=== PATIENT | male | born 1980 | race Caucasian/White ===

== ENCOUNTER 2019-08-02 07:25 | Emergency (ER) | payer OTHER ==
[~2019-08-02] VITALS: Ht 162.6 cm; Wt 83.0 kg
[~2019-08-02 07:25] MED LIST: HYDR-3240 PO
--- NOTE | 2019-08-02 07:50 | NUR ---
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 PT DENIES CARDIAC HISTORY. PT DENIES COUGH. PT STATES, "I HAVE BEEN DEALING WITH A SORE THROAT FOR TWO MONTHS, I HAVE SEEN A DOCTOR WHO BELIEVES IT IS ALLERGIES BECAUSE IT COMES AND GOES, I SAW HIM ON July FOR GENERAL CHECK UP." PAIN IS LOCATED BILATERALLY ALONG SIDE OF RIBS, RADIATES TO MIDDLE OF BACK. SOB IS INTERMITTENT. ALL MONITORING IN PLACE, NSR NOTED. VSS, NAD. PT SPEAKING IN FULL SENTECES AND SPO2% IS 98%. CALL LIGHT IN REACH.
--- NOTE | 2019-08-02 07:51 | NUR ---
EKG DONE IN TRIAGE
[2019-08-02] MEDS ORDERED: KETOROLAC 30 MG/1 ML ONE (07:53)
--- NOTE | 2019-08-02 07:59 | NUR ---
PATIENT MEDICATED PER EMAR, TOLERATED WELL
[2019-08-02] MEDS ORDERED: KETOROLAC 30 MG/1 ML IM ONE (08:00)
[2019-08-02 08:06] LABS: BASOPHILS # (AUTO) 0.03 x10^3/uL (0-0.1); BASOPHILS % (AUTO) 1 % (0-1); EOSINOPHILS # (AUTO) 0.03 x10^3/uL (0-0.4); EOSINOPHILS % (AUTO) 1 % (1-7); LYMPHOCYTES # (AUTO) 1.83 x10^3/uL (1-3.4); LYMPHOCYTES % (AUTO) 38 % (22-44); MD NO; MEAN CORPUSCULAR HEMOGLOBIN 30.1 pg (27.5-34.5); MEAN CORPUSCULAR HGB CONC 34.4 g/dL (33.2-36.2); MEAN CORPUSCULAR VOLUME 87.4 fL (81-97); MEAN PLATELET VOLUME 8.6 fL (7.4-10.4); MONOCYTES # (AUTO) 0.39 x10^3/uL (0.2-0.8); MONOCYTES % (AUTO) 8 % (2-9); NEUTROPHILS # (AUTO) 2.48 x10^3/uL (1.8-6.8); NEUTROPHILS % (AUTO) 52 % (42-75); PLATELET COUNT 232 x10^3/uL (130-400); RED BLOOD COUNT 5.45 x10^6/uL (4.38-5.82); RED CELL DISTRIBUTION WIDTH 13.6 % (9.4-14.8)
--- NOTE | 2019-08-02 08:12 | NUR ---
PATIENT BACK FROM XRAY
[2019-08-02 08:17] LABS: ALBUMIN 4.1 g/dL (3.4-5.0); ANION GAP 3 mmol/L (5-15); CHLORIDE 112 mmol/L (98-107); CREATININE 0.85 mg/dL (0.7-1.3)
[2019-08-02 08:21] LABS: TROPONIN I < 0.015 ng/mL (0.000-0.045)
[2019-08-02 08:53] VITALS: BP 117/75
--- NOTE | 2019-08-02 09:09 | NUR ---
Patient given discharge instructions and they have confirmed that they understand the instructions. Patient ambulatory with steady gait.
== END 2019-08-02 09:33 | disposition home or self-care (01) ==
LOC: ED 08:01
DX: R07.89 Other chest pain (principal); J02.9 Acute pharyngitis, unspecified; Z91.09 Other allergy status, other than to drugs and biological substances
CPT/HCPCS: 36415; 71046; 80048; 82040; 83880; 84484; 85025; 93005; 96372; 99285; J1885